=== PATIENT | male | born 1985 | race Two or more races ===

== ENCOUNTER 2018-10-09 19:22 | Emergency (ER) | payer SELFPAY ==
[~2018-10-09] VITALS: Ht 170.2 cm; Wt 63.5 kg
[2018-10-09 19:30] VITALS: BP 135/91
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
--- NOTE | 2018-10-09 20:10 | NUR ---
ED Nurse Note: Blood and urine sample collected and sent to Lab.
[2018-10-09 20:32] LABS: BASOPHILS % (AUTO) 1.3 % (0.0-2.0); EOSINOPHILS % (AUTO) 1.3 % (0.0-3.0); HEMATOCRIT 47.1 % (42.0-52.0); HEMOGLOBIN 16.6 G/DL (14.2-18.0); LYMPHOCYTES % (AUTO) 30.8 % (20.0-45.0); MEAN CORPUSCULAR VOLUME 90 FL (80-99); NEUTROPHILS % (AUTO) 59.6 % (45.0-75.0); PLATELET COUNT 335 K/UL (150-450); RED BLOOD COUNT 5.23 M/UL (4.70-6.10); RED CELL DISTRIBUTION WIDTH 10.8 % (11.6-14.8); WHITE BLOOD COUNT 6.9 K/UL (4.8-10.8)
--- NOTE | 2018-10-09 20:35 | NUR ---
ED Nurse Note: Pt pulled out the IV himself.
[2018-10-09 20:42] LABS: ANION GAP 14 mmol/L (5-15); BLOOD UREA NITROGEN 5 mg/dL (7-18); CALCIUM 8.7 MG/DL (8.5-10.1); CARBON DIOXIDE 26 MMOL/L (21-32); CHLORIDE 109 MMOL/L (98-107); CREATININE 0.8 MG/DL (0.55-1.30); POTASSIUM 3.6 MMOL/L (3.5-5.1); SODIUM 149 MMOL/L (136-145)
[2018-10-09 20:48] LABS: ALANINE AMINOTRANSFERASE 53 U/L (12-78); ALBUMIN 4.1 G/DL (3.4-5.0); ALBUMIN/GLOBULIN RATIO 1.1 (1.0-2.7); ALKALINE PHOSPHATASE 156 U/L (46-116); ASPARTATE AMINO TRANSFERASE 56 U/L (15-37); BILIRUBIN,TOTAL 0.2 MG/DL (0.2-1.0)
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
[2018-10-09] MEDS ORDERED: Miralax 17gm pkt ORAL PRN (23:15)
[2018-10-09] MEDS ORDERED: Zolpidem 5mg tab ORAL PRN (23:15)
[2018-10-09] MEDS ORDERED: Folic Acid 1 MG, Magnesium Sulfate 2,000 MG, Multivitamin - 12 Injection 10 ML in NS w/... IV SCH (23:15)
[2018-10-09] MEDS ORDERED: Morphine Sulfate 2mg/ml Inj(IV/IM USE ONLY) IVP PRN (23:15)
[2018-10-09] MEDS ORDERED: LORazepam Inj 2mg/ml 1ml IV PRN (23:15)
[2018-10-09] MEDS ORDERED: chlordiazePOXIDE 25mg Cap ORAL PRN (23:15)
[2018-10-09] MEDS ORDERED: Thiamine HCl 100 MG in NS 110 ML IM SCH (23:45)
--- NOTE | 2018-10-10 01:05 | NUR ---
ED Nurse Note: Wrong order entrance noted by Dr. Ge, Informed Charge nurse/ May.
--- NOTE | 2018-10-10 01:06 | NUR ---
ED Nurse Note: Wrong order entrance noted by Dr. Ge, Informed Charge nurse/ Mara. GIRARD's code is [id number] which enter on 10/09/18 @23:07
--- NOTE | 2018-10-10 05:15 | NUR ---
ED Nurse Note: Assited pt went to bathroom, provided a cup of water and a sandwiches. Pt is A/O X4. VSS.
--- NOTE | 2018-10-10 05:30 | NUR ---
Homeless Discharge: Patient is being discharged from medical care. Awake, alert and oriented x4. After care instructions, including referral to community resources were given. Patient verbalized understanding of After care instructions. Patient does not request medications, equipment or placement at this time. Patient signed patient consent in the medical record for patient destination upon discharge. All medical devices such as ID band were removed. Patient ambulated out with steady gait and with all personal belongings .
[2018-10-10 05:35] VITALS: BP 131/86
[2018-10-10] MEDS ORDERED: Heparin 5000 units/ml inj SUBQ SCH (09:00)
--- NOTE | 2018-10-10 10:38 | Diagnostic Imaging Report ---
Indication: Headache Technique: Contiguous 5 mm thick transaxial imaging of the head obtained in a Siemens Sensation [address] scanner. Soft tissue and bone windows generated. Automatic Exposure Control was utilized. Total Dose length Product (DLP): 1386.[address] Dose Index Volume (CTDIvol): 70.38 mGy Comparison: none Findings: The size and configuration of the cortical sulci, basal cisterns, and ventricles are within normal limits for age. There is no mass effect, midline shift, or edema identified. There is no evidence of acute hemorrhage or abnormal intra-axial or extra-axial fluid collections. The bones and soft tissues are unremarkable. Impression: No mass effect, edema or acute bleed. [facility] has communicated the preliminary results to the Emergency Department. Their findings are largely concordant with this report. The CT scanner at [facility] is accredited by the [employer] and the scans are performed using dose optimization techniques as appropriate to a performed exam including Automatic Exposure control.
== END 2018-10-10 05:35 | disposition home or self-care (01) ==
LOC: EDBD 19:22 → EMR 20:57
DX: F10.920 Alcohol use, unspecified with intoxication, uncomplicated (principal); S09.90XA Unspecified injury of head, initial encounter; X58.XXXA Exposure to other specified factors, initial encounter; Y92.9 Unspecified place or not applicable; G40.909 Epilepsy, unspecified, not intractable, without status epilepticus; Z79.899 Other long term (current) drug therapy
CPT/HCPCS: 36415; 70450; 80053; 80307; 85025; 96360; 99284; G0480; J3475; J3490; 80329